=== PATIENT | female | born 1980 | race Caucasian/White ===

== ENCOUNTER 2016-04-24 09:34 | Emergency (ER) | payer BC ==
[2016-04-24] MEDS ORDERED: ONDANSETRON ODT 4 MG TAB.RAPDIS ONE (09:55)
[2016-04-24] MEDS ORDERED: LORazepam 1 MG TABLET ONE (09:56)
--- NOTE | 2016-04-24 10:28 | ER NURSING DOCUMENTATION ---
Nurse's Notes [facility] Name:Maci Emanuel Age:36 yrs Sex:Female :1980 Arrival Date:04/24/2016 Time:09:34 BedTrauma C Private MD: Diagnosis:Palpitations Presentation: 04/24 09:40 Presenting complaint: Patient states: pt states she is feeling like she is having st palpitations and anxiety. Pt states that normally she can breath through her anxiety but this time it is not working. pt also states she drank ETOH heavily last night so she feels hung over as well. Transition of care: Home. AIR CAT ACTIVATION no. Asprin Given n/a. 09:40 Method Of Arrival: Private Vehicle st 09:43 Notified ED Physician of Jose Cm notified. st 09:43 Acuity: BARBARA 3 st Triage Assessment: 09:40 General: Appears uncomfortable, Behavior is cooperative. Pain: Complains of pain in st anterior aspect of left upper chest Pain currently is 2 out of 10 on a pain scale. Pain began 1 hour ago. EENT: Oral mucosa is dry. Neuro: No deficits noted. Cardiovascular: Capillary refill < 3 seconds Heart tones present Reports shortness of breath Rhythm is sinus tachycardia. Respiratory: Airway is patent Respiratory effort is even, unlabored, Respiratory pattern is regular, symmetrical. Historical: - Allergies: No known drug Allergies; - Home Meds: 1. None - PMHx: ANXIETY; - PSHx: None; - Tetanus: unknown will f/u with PCP. - Ebola Screening: : Patient denies exposure to infectious person. Patient denies travel to an Ebola-affected area in the 21 days before illness onset. . - Social history: Smoking status: Patient uses tobacco products, current every day smoker. Patient uses alcohol Patient/guardian denies using marijuana. Screenin:52 Infectious Disease Risk None. Abuse screen: Denies threats or abuse. Denies injuries st from another. Nutritional screening: No deficits noted. Assessment: 10:04 General: pt states she is feeling better.. st Vital Signs: 09:51 BP 118 / 59; Pulse 109; Resp 19; Temp 98.2; Pulse Ox 98% on R/A; Pain 2/10; st 10:15 Pulse 92; Resp 17; Pulse Ox 95% ; st ED Course: 09:36 Patient arrived in ED. lm3 09:42 Emilia Garcia RN is Primary Nurse. st 09:[address] 09:52 Valuables Remains with patient Patient has correct armband on for positive st identification. Placed in gown. Bed in low position. Cardiac Monitoring On for Nurse Monitoring only. Pulse Ox - RN Monitoring Only NIBP On - RN Monitoring Only. Lights dimmed. 10:00 Diet: Patient given water. st 10:04 James Garcia MD is Attending Physician. annie 10:11 Delonte Cabrera MD is Referral Physician. Administered Medications: 09:48 Drug: Zofran 4 mg; Route: PO; st 09:48 Drug: Ativan 1 mg; Route: PO; st Outcome: 10:13 Discharge ordered by . 10:25 Discharged to home ambulatory. st 10:25 Condition: improved 10:25 Discharge instructions given to patient, Instructed on discharge instructions, follow up and referral plans. 10:27 Patient [address] the ED. st 04/25 09:38 Discharge F/U Call: Spoke with: patient. Did your discharge instructions answer all lp of your questions? yes Have you made a f/u appointment? yes What is the one thing you feel we could do to improve? Patient's answer: Feeling much better Signatures: Emilia Garcia RN RN st Pavlish, Lena, RN RN lp Meyer, John, MD MD jm McKibbon-Moore, Lisa lm3
--- NOTE | 2016-04-24 10:28 | ER PHYSICIAN DOCUMENTATION ---
Physician Documentation [facility] Name:Maci Emanuel Age:36 yrs Sex:Female :1980 Arrival Date:04/24/2016 Time:09:34 BedTrauma C Private MD: James Snyder Disposition: 04/24/16 10:13 Discharged to Home/Self Care. Impression: Palpitations. - Condition is Good. - Discharge Instructions: PALPITATIONS. - Medical Reconciliation form form. - Follow up: Delonte Cabrera MD; When: 2 - 3 days; Reason: Continuance of care. - Problem is new. - Symptoms have improved. HPI: 04/24 10:00 This 36 yrs old Female presents to ER via Private Vehicle with complaints of jm Chest Pain, Possible Cardiac Related. 10:00 The patient presents with a history of heart racing. Context: The symptoms occur at jm rest. Onset: The symptom(s)/episode began/occurred today. Duration: The patient or guardian reports a single episode, that is still ongoing. Associated signs and symptoms: Pertinent positives: chest pain, mild pressure. Pt admits to feeling anxious and was out partying last night. She woke up feeling anxious and with palpitaiont. . Historical: - Allergies: No known drug Allergies; - Home Meds: 1. None - PMHx: ANXIETY; - PSHx: None; - Tetanus: unknown will f/u with PCP. - Ebola Screening: : Patient denies exposure to infectious person. Patient denies travel to an Ebola-affected area in the 21 days before illness onset. . - Social history: Smoking status: Patient uses tobacco products, current every day smoker. Patient uses alcohol Patient/guardian denies using marijuana. ROS: 10:00 Constitutional: Negative for fatigue, fever. jm 10:00 Neck: Negative for swollen nodes, tenderness. 10:00 Cardiovascular: Positive for palpitations. 10:00 Psych: Positive for anxiety. Exam: 10:00 Constitutional: The patient appears alert, awake, comfortable. jm 10:00 Chest/axilla: Inspection: normal, Palpation: is normal, tenderness, is not appreciated. 10:00 Cardiovascular: Rate: normal, Rhythm: regular. 10:00 Respiratory: Respirations: normal, Breath sounds: are normal. 10:00 Neuro: Mentation: is normal, Memory: is normal. 10:00 Psych: Behavior/mood is pleasant, cooperative, anxious, Affect is calm. Vital Signs: 09:51 BP 118 / 59; Pulse 109; Resp 19; Temp 98.2; Pulse Ox 98% on R/A; Pain 2/10; st 10:15 Pulse 92; Resp 17; Pulse Ox 95% ; st MDM: 10:00 Differential diagnosis: arrythmia, dehydration, stress disorder. Data reviewed: vital jm signs, nurses notes, lab test result(s), EKG, and as a result, I will discharge patient. Counseling: I had a detailed discussion with the patient and/or guardian regarding: the historical points, exam findings, and any diagnostic results supporting the discharge/admit diagnosis, the need for outpatient follow up, with the patient's primary care provider. ECG:. Response to treatment: the patient's symptoms have resolved after treatment. 10:04 Patient medically screened. annie 11:00 ED course: Pt is PERC negative. Pt feels better after meds. DC key.e . annie 04/24 09:43 Order name: PO Challenge; Complete Time: 10:00 st EC:00 Rhythm is regular. QRS [place] is Normal. QRS interval is normal. QT interval is normal. annie No Q waves. T waves are Normal. No ST changes noted. Dispensed Medications: 09:48 Drug: Zofran 4 mg; Route: PO; st 09:48 Drug: Ativan 1 mg; Route: PO; st Signatures: Emilia Garcia RN RN st Meyer, John, MD MD jm
== END 2016-04-24 10:28 | disposition home or self-care (01) ==
LOC: ER 09:34
DX: R00.2 Palpitations (principal); R41.9 Unspecified symptoms and signs involving cognitive functions and awareness
CPT/HCPCS: 99283